=== PATIENT | female | born 1950 | race Caucasian/White ===

== ENCOUNTER → 2016-05-11 09:45 | Outpatient (CLI) | payer MEDICARE ==
[2015-09-27 12:31] VITALS: BMI 23.9
[~2016-05-11 09:45] MED LIST: AMPYRA10 MG PO; AUBAGIO14 MG PO; CALTRATE 600 M600 M1 PO; CIPRO250 MG PO; ESTRACE1 MG PO; KLONOPIN1 MG PO; OXYBUTYNIN CHLOR5 MG PO; RELPAX40 MG PO; SINEMET CR 50-1 EACH PO; TYLENOL PM1 TAB PO; XALATAN 0.0052.5 ML EACH EYE; [UNRECOGNIZED DRUG - OTHER] PO
== END | disposition home or self-care (01) ==
LOC: D.US 09:45
DX: R60.0 Localized edema (principal); M79.605 Pain in left leg

== ENCOUNTER → 2017-02-05 12:26 | Outpatient (CLI) | payer MEDICARE, BC ==
[2015-09-27 12:31] VITALS: BMI 23.9
== END | disposition home or self-care (01) ==
LOC: D.US 12:26
DX: R60.0 Localized edema (principal); M79.605 Pain in left leg

== ENCOUNTER → 2017-05-03 09:26 | Outpatient (CLI) | payer MEDICARE, BC ==
[2015-09-27 12:31] VITALS: BMI 23.9
== END | disposition home or self-care (01) ==
LOC: D.US 09:26
DX: I82.402 Acute embolism and thrombosis of unspecified deep veins of left lower extremity (principal)

== ENCOUNTER 2018-01-07 19:43 | Emergency (ER) | payer MEDICARE, BC ==
[~2018-01-07] VITALS: Ht 149.9 cm; Wt 57.2 kg
[2018-01-07 19:49] VITALS: BP 113/50; Ht 149.9 cm; Wt 57.2 kg
[2018-01-07] MEDS ORDERED: LYRICA75 MG PO (19:51)
[2018-01-07 20:06] LABS: BASOPHILS 0.3 % (0-2); EOSINOPHILS 1.6 % (0-7); HEMOGLOBIN 12.1 g/dL (12-16); LYMPHOCYTES 33.1 % (15-50); MCH 30.7 pg (26.0-34.0); MCHC 32.7 g/dL (31.0-37.0); MCV 93.9 fL (80.0-100.0); MEAN PLATELET VOLUME 9.3 fL (7.4-10.4); MONOCYTES 10.3 % (2-11); NEUTROPHILS 54.7 % (40-80); PLATELET COUNT 259 10x3/uL (130-400); RBC 3.94 10x6/uL (4.00-5.40); RDW 12.9 % (11.5-14.5); WBC 6.1 10x3/uL (4.8-10.8)
[2018-01-07 20:21] LABS: ALBUMIN 3.4 g/dL (3.4-5.0); ALKALINE PHOSPHATASE 107 U/L (46-116); ALT (SGPT) 10 U/L (10-68); BILIRUBIN - TOTAL 0.22 mg/dL (0.2-1.3); CALC OSMOLALITY 287 mosm/kg (275-300); CALCIUM 8.2 mg/dL (8.5-10.1); CARBON DIOXIDE 30.5 mmol/L (21.0-32.0); CHLORIDE - SERUM 105 mmol/L (98-107); CREATININE - SERUM 0.6 mg/dL (0.6-1.3); GLUCOSE 105 mg/dL (74-106); POTASSIUM - SERUM 3.7 mmol/L (3.5-5.1); PROTEIN - SERUM 6.7 g/dL (6.4-8.2); SODIUM 143 mmol/L (136-145); UREA NITROGEN 20 mg/dL (7-18); eGFR NON AFRICAN AMERICAN > 90 mL/min (90-120)
== END 2018-01-07 22:49 | disposition home or self-care (01) ==
LOC: D.ER 19:43
PROVIDERS: Family Medicine
DX: R22.42 Localized swelling, mass and lump, left lower limb (principal); M79.662 Pain in left lower leg

== ENCOUNTER 2018-06-23 12:33 | Inpatient (IN) | payer MEDICARE, BC ==
[~2018-06-23] VITALS: Ht 149.9 cm; Wt 61.0 kg
[~2018-06-23 12:33] MED LIST changes: +LYRICA75 MG PO
[2018-06-23 13:24] VITALS: BP 147/62
[2018-06-23 13:27] LABS: BASOPHILS 0.4 % (0-2); EOSINOPHILS 0.3 % (0-7); HEMATOCRIT 37.5 % (36.0-48.0); HEMOGLOBIN 12.2 g/dL (12-16); IMMATURE GRANULOCYTES 0.2 % (0-5); LYMPHOCYTES 11.5 % (15-50); MCH 30.3 pg (26.0-34.0); MCHC 32.5 g/dL (31.0-37.0); MCV 93.3 fL (80.0-100.0); MEAN PLATELET VOLUME 9.5 fL (7.4-10.4); MONOCYTES 9.4 % (2-11); NEUTROPHILS 78.2 % (40-80); RBC 4.02 10x6/uL (4.00-5.40); RDW 13.6 % (11.5-14.5); WBC 9.2 10x3/uL (4.8-10.8)
[2018-06-23 13:33] LABS: PLATELET COUNT 350 10x3/uL (130-400)
[2018-06-23 13:40] LABS: ALBUMIN 3.7 g/dL (3.4-5.0); ALKALINE PHOSPHATASE 143 U/L (46-116); ALT (SGPT) 36 U/L (10-68); CALC OSMOLALITY 280 mosm/kg (275-300); CALCIUM 8.6 mg/dL (8.5-10.1); CARBON DIOXIDE 27.9 mmol/L (21.0-32.0); CHLORIDE - SERUM 103 mmol/L (98-107); CREATININE - SERUM 0.6 mg/dL (0.6-1.3); GLUCOSE 76 mg/dL (74-106); POTASSIUM - SERUM 3.6 mmol/L (3.5-5.1); PROTEIN - SERUM 7.5 g/dL (6.4-8.2); SODIUM 141 mmol/L (136-145); UREA NITROGEN 15 mg/dL (7-18); eGFR NON AFRICAN AMERICAN > 90 mL/min (90-120)
--- NOTE | 2018-06-23 14:10 | NUR ---
PT PROVIDED SNACK AND DRINK. PT STABLE, CALLLIGHT WITHIN REACH, DEEP AT BEDSIDE, WILL CONTINUE TO MONITOR.
[2018-06-23 14:30] VITALS: BP 145/52
[2018-06-23 17:00] VITALS: BP 135/53
[2018-06-23 18:30] VITALS: BP 122/51
--- NOTE | 2018-06-23 18:52 | NUR ---
PT REPORT CALLED TO [facility]. PT STABLE, CALL LIGHT WITHIN REACH. REPORTED THAT PT TOOK SOME OF HOME MEDICATION DALFAMPRIDINE 10 MG, LYRICA 75 MG, OXYBUTIN 10 MG, AND TYLENOL PM.
--- NOTE | 2018-06-23 19:30 | NUR ---
PT ADMITTED TO ROOM 210 FROM ER. ALERT/ORIENTED. ACCOMPANIED BY FAMILY X 5. ADMISSION ASSESSMENT AND HISTORY COMPLETED. HOME MEDS REVIEWED.
[2018-06-23 20:19] LABS: APPEARANCE HAZY (CLEAR); COLOR YELLOW (YELLOW)
[2018-06-23 20:20] LABS: BILIRUBIN NEGATIVE (NEGATIVE); GLUCOSE NEGATIVE (NEGATIVE); KETONE MODERATE mg/dL (NEGATIVE); NITRITE POSITIVE (NEGATIVE); PROTEIN TRACE mg/dL (NEGATIVE); UROBILINOGEN NORMAL (NORMAL)
[2018-06-23 20:21] LABS: BACTERIA MANY /hpf (NONE SEEN); EPITHELIAL CELLS 0-5 /hpf (0-5); RED CELLS - URINE 0-5 /hpf (0-5); WHITE CELLS - URINE 25-50 /hpf (0-5)
--- NOTE | 2018-06-23 21:20 | NUR ---
DR ESCOBAR NOW ON UNIT SEEING PATIENT.
[2018-06-23 21:43] VITALS: BP 115/48
[2018-06-24 00:30] VITALS: BP 115/48; Ht 149.9 cm; Wt 61.0 kg
[2018-06-24 01:07] VITALS: BP 117/51
[2018-06-24 05:45] LABS: BASOPHILS 0.1 % (0-2); EOSINOPHILS 0.4 % (0-7); HEMATOCRIT 35.4 % (36.0-48.0); HEMOGLOBIN 11.4 g/dL (12-16); IMMATURE GRANULOCYTES 0.3 % (0-5); LYMPHOCYTES 5.1 % (15-50); MCHC 32.2 g/dL (31.0-37.0); MCV 93.2 fL (80.0-100.0); MEAN PLATELET VOLUME 9.4 fL (7.4-10.4); MONOCYTES 8.2 % (2-11); NEUTROPHILS 85.9 % (40-80); PLATELET COUNT 348 10x3/uL (130-400)
[2018-06-24 05:57] VITALS: BP 121/58
[2018-06-24 06:03] LABS: CALC OSMOLALITY 282 mosm/kg (275-300); CALCIUM 7.9 mg/dL (8.5-10.1); CARBON DIOXIDE 24.6 mmol/L (21.0-32.0); CHLORIDE - SERUM 105 mmol/L (98-107); CREATININE - SERUM 0.6 mg/dL (0.6-1.3); POTASSIUM - SERUM 3.7 mmol/L (3.5-5.1); SODIUM 141 mmol/L (136-145); UREA NITROGEN 15 mg/dL (7-18); eGFR NON AFRICAN AMERICAN > 90 mL/min (90-120)
[2018-06-24 06:05] LABS: GLUCOSE 119 mg/dL (74-106)
[2018-06-24 06:09] LABS: WBC 15.5 10x3/uL (4.8-10.8)
[2018-06-24 08:19] VITALS: BP 113/50
--- NOTE | 2018-06-24 08:47 | HP ---
PATIENT: ALEC DAVIS MEDICAL RECORD: [id number] ACCOUNT: [id number] LOCATION:[address] : [birth year] ADMISSION DATE: 06/23/18 PCP: No PCP HISTORY AND PHYSICAL EXAMINATION DATE OF ADMISSION: 06/23/2018 CHIEF COMPLAINT: Fall, weakness, urinary tract infection, and multiple sclerosis. HISTORY OF PRESENT ILLNESS: This is a 67-year-old female who has multiple sclerosis followed by Dr. Blackwood. She has had increased weakness, lately she is having more falls. Lately, she is using a rollator walker more. Her sister was at her house yesterday and the patient was very weak and could not walk, but just a few steps. Her sister cleaned up the kitchen little bit and left and came back this morning about 11:00 a.m. and her wooden door was open to the outside and the screen door was shut. The patient was found on the floor in the bathroom without any clothes on. The patient's sister thinks that she spent all night on the floor in the bathroom and could not get up because she was so weak. She was brought to the Emergency Department today. Her urinalysis looks infected. Other lab work looked okay. Left ankle x-ray shows an acute, mildly displaced horizontal fracture at the medial malleolus. She is not able to get up and walk. She is admitted for further care and evaluation. Also, the sister states that the patient was very confused when she got there this morning. She thought she was somewhere else and was disoriented. Sister states that she is a lot better now, but still says a few words that lead her to believe she is still confused. PAST MEDICAL AND SURGICAL HISTORY: Multiple sclerosis, history of gout, migraine headaches, and glaucoma. PAST SURGICAL HISTORY: Hysterectomy. ALLERGIES: SULFA. HOME MEDICATIONS: Latanoprost 0.005% drops 1 drop both eyes every day, oxybutynin 5 mg twice a day, Lyrica 75 mg twice a day, dalfampridine 10 mg sustained release twice a day, Aubagio 14 mg tablet once a day. She also takes Sinemet-CR 50/200 three times a day, amitriptyline 50 mg at bedtime, Estradiol 1 mg once a day, and clonazepam 1 mg at bedtime. SOCIAL HISTORY: , lives alone, retired. HABITS: Former smoker, no alcohol or drugs. FAMILY HISTORY: Noncontributory. REVIEW OF SYSTEMS: GENERAL: No major weight changes. HEENT: No particular sinus or allergy problems. RESPIRATORY: No history of emphysema or asthma. CARDIAC: No history of coronary artery disease. No chest pain or palpitations. GASTROINTESTINAL: No diarrhea, constipation, or reflux. GENITOURINARY: Occasional urinary tract infection. MUSCULOSKELETAL: Has multiple sclerosis and is suffering falls. HISTORY AND PHYSICAL [id number] ALEC DAVIS NEUROLOGICAL: Has multiple sclerosis and migraine headaches followed by Dr. Blackwood. PSYCHIATRIC: No depression or melancholia. PHYSICAL EXAMINATION: VITAL SIGNS: Today, temperature 97.3, pulse 88, respirations 15, blood pressure 134/63, O2 sat 97%. GENERAL: She does not appear to be in acute distress. She is awake and alert. SKIN: Warm and dry. HEENT: Grossly within normal limits. NECK: Supple. No JVD or bruit. HEART: Regular rate and rhythm without murmur. LUNGS: Clear. ABDOMEN: Soft, flat, nontender. EXTREMITIES: She has mild erythema on her lower extremities. No pitting edema. She has mild tenderness to palpation around the medial malleolus of the left ankle where the x-ray suggested an acute, mildly displaced horizontal fracture. NEUROLOGIC: She is not asked to get out of bed and walk or stand up at this time. LABORATORY DATA: Urinalysis 2+ leukocyte esterase, moderate ketones, positive nitrite, trace protein, 25-50 white blood cells, many bacteria. CBC with a white count 9200, hemoglobin 12.2, hematocrit 37.5. Basic metabolic panel: Sodium 141, potassium 3.6, chloride 103, CO2 27.9, BUN 15, creatinine 0.6, glucose 76, calcium 8.6. AST is elevated at 68, ALT 36. X-ray of the left knee shows no osseous abnormality. X-ray of the left ankle shows acute mildly displaced horizontal fracture of the medial malleolus. Chest x-ray, nothing acute. ASSESSMENT: 1. Unwitnessed fall, last night at home. 2. Urinary tract infection. 3. Multiple sclerosis. 4. Acute mildly displaced fracture of left medial malleolus. PLAN: We will start IV fluid, IV antibiotics. We will check a CT of the head due to her confusion this morning. We will also check a CT of the left ankle as she does not seem to be very painful to palpation there. We will check a D-dimer, follow up with results of that. Other tests or procedures as warranted. TRANSINT:[id number] Voice Confirmation ID: [id number] DOCUMENT ID: [id number] LEI ESCOBAR MD at 0847 CC: [id number] DICTATION DATE: 06/23/182128 COMPUTER NETWORK AND SYSTEMS ENGINEER: 06/23/18 2342 ADM IN [place] [id number] [place] [id number]
[2018-06-24 12:17] VITALS: BP 109/50
--- NOTE | 2018-06-24 13:32 | NUR ---
ALERT AND ORIENTED. SITTING UP IN BED. US TECH INITIATING DOPLER ORDERED. INITIATE NPO FOR CTA. DENIES ANY NEEDS. CONTINUE PLAN OF CARE AND SAFETY PRECAUTIONS.
--- NOTE | 2018-06-24 17:56 | NUR ---
ALERT AND ORIENTED X4. RESTING IN BED. LINENS SOILED. LINEN CHANGE INITIATED. EKG COMPLETE ON CHART. DENIES ANY OTHER NEEDS. CONTINUE PLAN OF CARE AND SAFETY PRECAUTIONS.
--- NOTE | 2018-06-24 19:20 | NUR ---
RESUMING CARE PT LAYING IN BED A&O X4, IN IN LFT WRIST RUNNING NS @50 , PT ON RA NO C/O OF PAIN OR DISTRESS AT THIS TIME FAMILY @BEDSIDE CL IN REACH WILL CONT TO MONITOR
[2018-06-25] VITALS: BP 118/56; BP 121/62
--- NOTE | 2018-06-25 02:38 | NUR ---
RESTING QUITELY IN BED EYES CLOSED RESP UNLABOARED NO APPARENT DISTRESS CALL LIGHT IN REACH
[2018-06-25 04:00] VITALS: BP 107/55
--- NOTE | 2018-06-25 07:33 | NUR ---
REPORT RECEIVED. WILL CONTINUE WITH POC. PT CURRENTLY LYING SEMI FOWLERS. CALL LIGHT W/I REACH. PT IS AAO AND UP AD TORRIE. RR EVEN AND UNLABORED ON RA. NS INFUSING @50ML/HR VIA L.WRIST PIV. PT DENIES ANY NEEDS AT THIS TIME. FALL PRECAUTIONS IN PLACE. NO S/S OF DISTRESS NOTED. WILL CTM.
[2018-06-25 07:59] VITALS: BP 119/49
[2018-06-25 11:25] VITALS: BP 117/61
--- NOTE | 2018-06-25 14:30 | NUR ---
I have reviewed this patient and I concur with the Shift Assessment completed by the Licensed Practical Nurse today this shift.
[2018-06-25 15:16] VITALS: BP 131/61
--- NOTE | 2018-06-25 16:02 | NUR ---
I have reviewed this patient and I concur with the Shift Assessment completed by the Licensed Practical Nurse today this shift.
--- NOTE | 2018-06-25 17:18 | NUR ---
PT CURRENTLY LYING SEMI FOWLERS. CALL LIGHT W/I REACH. PT IS AAO AND UP WITH PT ONLY. FAMILY AT BEDSIDE. RR EVEN AND UNLABORED ON RA. NS INFUSING @50ML/HR VIA L.WRIST PIV. PIV DRESSING CHANGE AND IS C/D/I. PT DENIES ANY NEEDS AT THIS TIME. WILL CTM.
--- NOTE | 2018-06-25 20:29 | NUR ---
PT INCONT A LARGE AMOUNT, CLEANED PT AND REPOSITIONED. LEFT LEG STIFF AND BOTH LEGS WEAK. PT IS AAO, PT NOW CLEAN AND DRY. WILL CALL FOR ASSIST WHEN NEEDED. PT BEDLOW AND CALL LIGHT IN REACH. NAME AND DATE PLACED ON BOARD. WILL CPOC
[2018-06-25 20:30] VITALS: BP 129/41
--- NOTE | 2018-06-25 21:29 | NUR ---
PT INCONT A LARGE AMOUNT. COMPLETE BEDCHANGE. GAVE PT NIGHT MEDS. PT VERBALIZED UNDERSTANDING OF ALL MEDICATIONS AND EDUCATION GIVEN ON MEDICATIONS. ROCEPHIN GIVEN THROUGH LEFT WRIST IV. PT WILL CALL FOR ASSIST WHEN NEEDED WILL CPOC
[2018-06-26 00:30] VITALS: BP 112/63
--- NOTE | 2018-06-26 02:00 | NUR ---
PT INCONT A LARGE AMOUNT. CLEANED PT AND REPOSTIONED. PT BEDLOW AND CALL LIGHT INREACH. PT VERBALIZED UNDERSTANDING OF EDUCATION REGARDING SKIN INTEGRITY. PT STATES SHE WILL REPOSTION BUTTOCK TO PREVENT BREAKDOWN. PT HAS NO S/S OF DISTRESS. WILL CPOC
--- NOTE | 2018-06-26 04:00 | NUR ---
PT INCONT A LARGE AMOUNT, LEFT WRIST IV IS RED AND IS LEAKING. REMOVED IV WITH CATH INTACT. APPLIED BANDAID. PT ASKED TO GET ON BED PARRA AFTER BEING CHANGED FROM AN INCONT VOID. PLACED PT ON BEDPAN. PT URINATED. TOOK OFF OF BEDPAN. CLEANED AND REPOSTIONED. PT HAS CALL LIGHT IN REACH. NO S/S OF DISTRESS. PT WILL CALL FOR ASSIST WHEN NEEDED.WILL CPOC
--- NOTE | 2018-06-26 04:29 | NUR ---
PT CALLED TO BE PLACED ON BED PARRA. PLACED BEDPAN PT HAS CALL LIGHT INREACH. WILL CALL FOR ASSIST WHEN COMPLETE. NO S/S OF DISTRESS. NO OTHER NEEDS. ANKIT KWANOC
--- NOTE | 2018-06-26 04:59 | NUR ---
PT OFF OF BED PARRA. VOIDED 120ML 2 SMALL PIECES OF STOOL HARD LESS THAN 80ML IN TOTAL. PT CLEANED AND REPOSTIONED. DENIES ANY NEEDS. WILL CPOC
[2018-06-26 05:29] VITALS: BP 134/63
--- NOTE | 2018-06-26 06:20 | NUR ---
PT INCONT A SMALL AMOUNT THAN USED BEDPAN AND URINATED 150 PT CLEANED AND REPOSTIONED. PT HAS CALL LIGHT IN REACH. WILL CPOC
[2018-06-26 07:53] VITALS: BP 125/56
--- NOTE | 2018-06-26 10:41 | NUR ---
REHAB PRESCREENING Rehab referral received and chart reviewed. Ms. Batista appears to be a good candidate for acute inpatient rehab. Dr. Burton has ordered a CTA of her neck today. Rehab will interview with patient to determine willingness to come and participate in the required 3 hours of therapy. CTA will need to be completed and determination of further treatment will need to be assessed prior to admission to rehab. Rehab will continue to follow. Thank you for this referral! Keleln Gil, STEWARD/STEWARDESS DECK Rehab PD
[2018-06-26 12:23] VITALS: BP 107/53
--- NOTE | 2018-06-26 13:58 | NUR ---
PT CHANGED. DENIES ANY NEEDS. CALL LIGHT IN REACH. WILL MONITOR
--- NOTE | 2018-06-26 14:09 | NUR ---
I DISAGREE WITH ASSESSMENT OF MORTUARY BEAUTICIAN. PATIENT IS INCONT. OF URINE. SHE ALSO HAS A RIGHT FA PIV OF NS INFUSING AT 50 CC/HR.
[2018-06-26 14:47] VITALS: BP 142/64
--- NOTE | 2018-06-26 16:16 | MORECARE ---
CASE MANAGEMENT DISCHARGE SUMMARY PATIENT: ALEC DAVIS ARYA UNIT: [id number] ADM DATE: 06/23/18 AGE: 67 : 51 SEX: F ROOM/BED: D.2104 AUTHOR: MARY CHRISTENSEN PHYSICIAN: REFERRING PHYSICIAN: ELI ESCOBAR MD DATE OF SERVICE: 06/26/18 Discharge Plan Patient Name: ALEC DAVIS Facility: [facility]:[place] : 1950 Planned Disposition: Inpatient Rehab Anticipated Discharge Date: 06/26/18 Discharge Date: Expected LOS: 3 Initial Reviewer: [email or web address] Initial Review Date: 06/26/2018 Generated: 06/26/18 5:16 pm DCPIA - Discharge Planning Initial Assessment Updated by [id number]: Joseph Armendariz on 06/26/18 4:15 pm * Is the patient Alert and Oriented? Yes * How many steps to enter\exit or inside your home? 4-O / 2-I * PCP DR. ESCOBAR * [facility] * Preadmission Environment Home Alone * ADLs Independent * Equipment Cane Other Wheelchair * Other Equipment ROLLATOR WALKER [employer] - MEDICAL EQUIPMENT PROVIDER * List name and contact numbers for known caregivers / representatives who currently or will assist patient after discharge: SAM OKEEFE, SISTER, * Verbal permission to speak to the caregivers and representatives has been obtained from the patient. Yes * Community resources currently utilized None * Please name any agencies selected above. NONE * Additional services required to return to the preadmission environment? Yes * Can the patient safely return to the preadmission environment? Yes * Has this patient been hospitalized within the prior 30 days at any hospital? No Coverage Notice Reviewer: [id number] - Joseph Armendariz Notice Issued Date-Time: 06/26/2018 11:10 Notice Type: IM Discharge Notice Notice Delivered To: Patient Relationship to Patient: Continuum Of Care Manager Name: Delivery Method: HAND - Hand Delivered Maia Days: Prior Verbal Notification: Recipient Understood Notice: Yes Recipient Signature: Yes Med Rec Note Co-signed by Attending: Coverage Notice Comment: Patient Name: ALEC DAVIS Page 58510 at 1616 All edits/amendments must be made on the electronic document DICTATION DATE: 06/26/181615 SCIENTIFIC SYSTEMS ANALYST: PATSY 06/26/181615 RPT#: [id number] DC DATE: STATUS: ADM IN [facility] [address] [place] [address] END OF REPORT
--- NOTE | 2018-06-26 16:26 | MORECARE ---
CASE MANAGEMENT DISCHARGE SUMMARY PATIENT: ALEC DAVIS UNIT: [id number] ADM DATE: 06/23/18 AGE: 67 : 51 SEX: F ROOM/BED: D.7824 AUTHOR: FERMIN,DOC PHYSICIAN: REFERRING PHYSICIAN: ELI ESCOBAR MD DATE OF SERVICE: 06/26/18 Discharge Plan Patient Name: ALEC DAVIS [facility] [facility] 1950 Planned Disposition: Inpatient Rehab Anticipated Discharge Date: 06/26/18 Discharge Date: Expected LOS: 3 Initial Reviewer: [email or web address] Initial Review Date: 06/26/2018 Generated: 06/26/18 5:26 pm Comments DCP- Discharge Planning Updated by [email or web address]: Joseph Armendariz on 06/26/18 3:[address] Patient Name: ALEC DAVIS Admission Status: ER Accout number: [id number] Admission Date: 06-23-2018 : 1950 Admission Diagnosis:URINARY TRACT INFECTION, SITE NOT SPECIFIED Attending: ELI ESCOBAR Current LOS: 3 Anticipated DC Date: 06-26-2018 Planned Disposition: Inpatient Rehab Primary Insurance: MEDICARE A & B PLANNED EXTERNAL PROVIDER: [facility] INPATIENT REHAB Discharge Planning Comments: CM RECEIVED ORDER FOR INPATIENT REHAB PRESCREENING, MET WITH PT AND SISTER IN ROOM TO DISCUSS DISCHARGE PLANNING AND NEEDS. ALEC DAVIS provided verbal consent to discuss current and ongoing needs with/in the presence of: SISTER, SAM OKEEFE. PT REPORTS LIVING AT HOME INDEPENDENTLY AND ALONE. PT HAS CANE, ROLLATOR WALKER AND WHEELCHAIR (NOT USING CURRENTLY) FROM [employer]. PT NO OUTSIDE SERVICES ASSISTING IN THE HOME. CM DISCUSSED AVAILABILITY OF HOME HEALTH, REHAB SERVICES AND MEDICAL EQUIPMENT. PT WOULD LIKE REHAB AT [facility]. PT REPORTS HER SISTER WILL PICK HER UP FOR DISCHARGE HOME. IMPORTANT MESSAGE FROM MEDICARE PROVIDED AND EXPLAINED. CM SPOKE TO [facility] AT [place], PT IS GOOD CANDIDATE FOR REHAB. THEY PLAN TO ACCEPT PT AT DISCHARGE LONG ALL TESTING AND PROCEDURES ARE COMPLETED AND PT IS MEDICALLY STABLE FOR REHAB. THERE IS A PHYSICIAN CONSULTATION THAT HAS NOT YET BEEN COMPLETED AND DOCUMENTED. FOR DISCHARGE, NOTIFY [facility] INPATIENT REHAB SO THAT SCREENING CAN BE COMPLETED. Hair Sample Matcher: Joseph Armendariz DCPIA - Discharge Planning Initial Assessment Updated by [id number]: Joseph Armendariz on 06/26/18 4:15 pm * Is the patient Alert and Oriented? Yes * How many steps to enter\exit or inside your home? 4-O / 2-I * PCP DR. ESCOBRA * Pharmacy [facility] [address] * Preadmission Environment Home Alone * ADLs Independent * Equipment Cane Other Wheelchair * Other Equipment ROLLATOR WALKER [employer] - MEDICAL EQUIPMENT PROVIDER * List name and contact numbers for known caregivers / representatives who currently or will assist patient after discharge: SAM OKEEFE, SISTER, * Verbal permission to speak to the caregivers and representatives has been obtained from the patient. Yes * Community resources currently utilized None * Please name any agencies selected above. NONE * Additional services required to return to the preadmission environment? Yes * Can the patient safely return to the preadmission environment? Yes * Has this patient been hospitalized within the prior 30 days at any hospital? No Coverage Notice Reviewer: [id number] - Joseph Armendariz Notice Issued Date-Time: 06/26/2018 11:10 Notice Type: IM Discharge Notice Notice Delivered To: Patient Relationship to Patient: Barrel Rifler Operator Name: Delivery Method: HAND - Hand Delivered Maia Days: Prior Verbal Notification: Recipient Understood Notice: Yes Recipient Signature: Yes Med Rec Note Co-signed by Attending: Coverage Notice Comment: Last DP export: 06/26/18 3:16 p Patient Name: ALEC DAVIS Page [phone] at 1626 All edits/amendments must be made on the electronic document DICTATION DATE: 06/26/181625 COMMUNITY SERVICE SPECIALIST: PATSY 06/26/18 1626 RPT#: [id number] DC DATE: STATUS: ADM IN [facility] [address] [place] [address] END OF REPORT
--- NOTE | 2018-06-26 19:30 | NUR ---
RESUMING PT CARE. PT IS ALERT LAYING IN BED. FAMILY AT BEDSIDE. NO C/O VOICED AT THIS TIME. PT HAS A IV IN THE RIGHT FOREARM WITH NORMAL SALINE RUNNING AT 50 ML/HR. BED IN LOW POSITION WITH CALL LIGHT IN REACH. WILL CONTINUE TO MONITOR PT AND FOLLOW PLAN OF CARE.
[2018-06-26 20:00] VITALS: BP 135/61
[2018-06-27] VITALS: BP 144/59
--- NOTE | 2018-06-27 03:19 | NUR ---
PT LAYING IN BED WITH EYES CLOSED RESTING COMFORTABLY. RESPIRATIONS EVEN AND UNLABORED. PT HAS A IV IN THE RIGHT FOREARM PIV WITH NORMAL SALINE INFUSING AT 50 CC/HR. BED IN LOW POSITION WITH CALL LIGHTIN REACH. WILL CONTINUE TO MONITOR PT AND FOLLOW PLAN OF CARE.
[2018-06-27 04:50] VITALS: BP 120/59
--- NOTE | 2018-06-27 07:54 | NUR ---
PT AWAKE AND ORIENTED. LYING IN BED. NO CONCERNS/COMPLAINTS VOICED AT THIS TIME. VERY PLESANT. CL IN REACH. SRX2.
[2018-06-27 08:14] VITALS: BP 128/66
--- NOTE | 2018-06-27 12:24 | MORECARE ---
CASE MANAGEMENT DISCHARGE SUMMARY PATIENT: ALEC DAVIS UNIT: [id number] ADM DATE: 06/23/18 AGE: 67 : 51 SEX: F ROOM/BED: D.2104 AUTHOR: MARY CHRISTENSEN PHYSICIAN: REFERRING PHYSICIAN: ELI ESCOBAR MD DATE OF SERVICE: 06/27/18 Discharge Plan Patient Name: ALEC DAVIS Facility: [facility]:[place] : 1950 Planned Disposition: Inpatient Rehab Anticipated Discharge Date: 06/27/18 Discharge Date: Expected LOS: 4 Initial Reviewer: [email or web address] Initial Review Date: 06/26/2018 Generated: 06/27/18 1:24 pm Comments DCP- Discharge Planning Updated by [id number]: Joseph Armendariz on 06/27/18 11:[address] Patient Name: ALEC DAVIS Encounter No: [id number] : 1950 Primary Insurance: MEDICARE A & B Anticipated DC Date: 06-26-2018 Planned Disposition: Inpatient Rehab External Planned Provider: [facility] INPATIENT REH[facility] DCP follow-up note: CM SPOKE TO [facility] OF INPATIENT REHAB, THEY PLAN TO ACCEPT PT TODAY IF PRIMARY CARE IS READY TO DISCHARGE DR. RUSSO INDICATES HE IS. PT NOTIFIED, IN AGREEMENT WITH DISCHARGE TO INPATIENT REHAB. CM CALLED FOR DR ESCOBAR, DR. PADILLA COVERING, SPOKE TO NURSE DARWIN WHO WILL NOTIFY DR. PADILLA FOR DISCHARGE TODAY. CM NOTIFIED [facility] OF INPATIENT REHAB. [facility] INPATIENT REHAB TO CONTACT MED 2 NURSE WITH ROOM NUMBER WHEN READY TO ACCEPT PT AND NURSE REPORT. Joseph Armendariz, CASE MANAGEMENT DCP- Discharge Planning Updated by [id number]: Joseph Armendariz on 06/26/18 3:[address] Patient Name: ALEC DAVIS Admission Status: ER Accout number: [id number] Admission Date: 06-23-2018 : 1950 Admission Diagnosis:URINARY TRACT INFECTION, SITE NOT SPECIFIED Attending: ELI ESCOBAR Current LOS: 3 Anticipated DC Date: 06-26-2018 Planned Disposition: Inpatient Rehab Primary Insurance: MEDICARE A & B PLANNED EXTERNAL PROVIDER: [facility] INPATIENT REHAB Discharge Planning Comments: CM RECEIVED ORDER FOR INPATIENT REHAB PRESCREENING, MET WITH PT AND SISTER IN ROOM TO DISCUSS DISCHARGE PLANNING AND NEEDS. ALEC DAVIS provided verbal consent to discuss current and ongoing needs with/in the presence of: SISTER, SAM OKEEFE. PT REPORTS LIVING AT HOME INDEPENDENTLY AND ALONE. PT HAS CANE, ROLLATOR WALKER AND WHEELCHAIR (NOT USING CURRENTLY) FROM [employer]. PT NO OUTSIDE SERVICES ASSISTING IN THE HOME. CM DISCUSSED AVAILABILITY OF HOME HEALTH, REHAB SERVICES AND MEDICAL EQUIPMENT. PT WOULD LIKE REHAB AT [facility]. PT REPORTS HER SISTER WILL PICK HER UP FOR DISCHARGE HOME. IMPORTANT MESSAGE FROM MEDICARE PROVIDED AND EXPLAINED. CM SPOKE TO [facility] AT [place], PT IS GOOD CANDIDATE FOR REHAB. THEY PLAN TO ACCEPT PT AT DISCHARGE LONG ALL TESTING AND PROCEDURES ARE COMPLETED AND PT IS MEDICALLY STABLE FOR REHAB. THERE IS A PHYSICIAN CONSULTATION THAT HAS NOT YET BEEN COMPLETED AND DOCUMENTED. FOR DISCHARGE, NOTIFY [facility] INPATIENT REHAB SO THAT SCREENING CAN BE COMPLETED. Laboratory Coordinator: Joseph Armendariz DCPIA - Discharge Planning Initial Assessment Updated by [id number]: Joseph Armendariz on 06/26/18 4:15 pm * Is the patient Alert and Oriented? Yes * How many steps to enter\exit or inside your home? 4-O / 2-I * PCP DR. ESCOBAR * [facility] [place] [place] [address] * Preadmission Environment Home Alone * ADLs Independent * Equipment Cane Other Wheelchair * Other Equipment ROLLATOR WALKER [employer] - MEDICAL EQUIPMENT PROVIDER * List name and contact numbers for known caregivers / representatives who currently or will assist patient after discharge: SAM OKEEFE, SISTER, * Verbal permission to speak to the caregivers and representatives has been obtained from the patient. Yes * Community resources currently utilized None * Please name any agencies selected above. NONE * Additional services required to return to the preadmission environment? Yes * Can the patient safely return to the preadmission environment? Yes * Has this patient been hospitalized within the prior 30 days at any hospital? No Coverage Notice Reviewer: [id number] - Joseph Armendariz Notice Issued Date-Time: 06/26/2018 11:10 Notice Type: IM Discharge Notice Notice Delivered To: Patient Relationship to Patient: Company Doctor Name: Delivery Method: HAND - Hand Delivered Maia Days: Prior Verbal Notification: Recipient Understood Notice: Yes Recipient Signature: Yes Med Rec Note Co-signed by Attending: Coverage Notice Comment: Last DP export: 06/26/18 3:26 p Patient Name: ALEC DAVIS Page [phone] at 1224 All edits/amendments must be made on the electronic document DICTATION DATE: 06/27/18 1224 ACCOUNT PROCESSOR: PATSY 06/27/18 1224 RPT#: [id number] DC DATE: STATUS: ADM IN [facility] [address] [place] [address] END OF REPORT
--- NOTE | 2018-06-27 13:20 | NUR ---
I have reviewed this patient and I concur with the Shift Assessment completed by the Licensed Practical Nurse today this shift.
--- NOTE | 2018-06-27 13:29 | NUR ---
I have reviewed this patient and I concur with the Shift Assessment completed by the Licensed Practical Nurse today this shift. Patient is sitting in chair at this time awaiting therapy to place her back in bed.
[2018-06-27 15:02] VITALS: BP 119/71
--- NOTE | 2018-06-27 15:55 | NUR ---
PT WILL BE GOING TO ROOM 1113.
--- NOTE | 2018-06-27 16:02 | NUR ---
PT ESCORTED OUT VIA WHEELCHAIR TO REHAB. BROTHER IN LAW WITH HER.
== END 2018-06-27 16:07 | DRG 65 ==
LOC: D.ER 12:33 → D.EDHOLD 16:33 → D.M2 16:33
PROVIDERS: Emergency Medicine; ADMIT Family Medicine; ATTEND Family Medicine
DX: I63.81 Other cerebral infarction due to occlusion or stenosis of small artery (principal); N39.0 Urinary tract infection, site not specified; I69.851 Hemiplegia and hemiparesis following other cerebrovascular disease affecting right dominant side; G35 Multiple sclerosis; W19.XXXA Unspecified fall, initial encounter; S82.52XA Displaced fracture of medial malleolus of left tibia, initial encounter for closed fracture; I69.920 Aphasia following unspecified cerebrovascular disease; M50.223 Other cervical disc displacement at C6-C7 level; R41.0 Disorientation, unspecified; R53.81 Other malaise

== ENCOUNTER 2018-06-27 16:22 | Inpatient (IN) | payer MEDICARE, BC ==
[~2018-06-27] VITALS: Ht 149.9 cm; Wt 56.7 kg
[2018-06-27 16:45] VITALS: BMI 25.3
--- NOTE | 2018-06-27 20:00 | NUR ---
PT IS RESTING IN BED WITH EYES OPEN. ALERT AND ORIENTED X 3. DENIES ACUTE PAIN OR DISCOMFORT AT THIS TIME. REHAB ADMISSION PAPERS SIGNED AT THIS TIME. PT ACKNOWLEDGES UNDERSTANDING OF ALL RULES. PT ASSISTED TO THE BATHROOM WITH MIN ASSIST FOR TRANSFERS. CGA WITH AMBULATION USING A RW, AND SBA FOR TOILETING. SR'S ARE UP X 2 IN BED. CALL LIGHT AND BEDSIDE TABLE ARE WTIHIN EASY REACH.
[2018-06-27 21:21] VITALS: BP 150/67
--- NOTE | 2018-06-27 22:03 | NUR ---
PT ASSISTED TO THE BATHROOM WITH MIN ASSIST. INC. CARE GIVEN, AND BRIED CHANGED.
--- NOTE | 2018-06-28 00:55 | NUR ---
RESTING IN BED WITH EYES CLOSED.
--- NOTE | 2018-06-28 02:43 | NUR ---
THE PATIENT IS AWAKE AND TALKING TO STAFF. HE APPEARS COMFORTABLE AND HAS NO QUESTIONS OR CONCERNS AT THIS TIME.
--- NOTE | 2018-06-28 02:46 | NUR ---
THE PATIENT APPEARS TO BE SLEEPING. BED IN THE LOW POSITION WITH SIDERAILS X2 AND CALL LIGHT WITHIN REACH.
--- NOTE | 2018-06-28 04:13 | NUR ---
PT IS RESTING QUIETLY IN BED WITH EYES CLOSED.
[2018-06-28 06:42] LABS: BASOPHILS 0.6 % (0-2); EOSINOPHILS 4.3 % (0-7); HEMOGLOBIN 12.8 g/dL (12-16); IMMATURE GRANULOCYTES 0.4 % (0-5); LYMPHOCYTES 33.1 % (15-50); MCH 30.3 pg (26.0-34.0); MCV 94.8 fL (80.0-100.0); MEAN PLATELET VOLUME 9.4 fL (7.4-10.4); MONOCYTES 14.1 % (2-11); NEUTROPHILS 47.5 % (40-80); PLATELET COUNT 417 10x3/uL (130-400); RBC 4.22 10x6/uL (4.00-5.40); WBC 7.2 10x3/uL (4.8-10.8)
[2018-06-28 06:52] LABS: CALC OSMOLALITY 280 mosm/kg (275-300); CALCIUM 8.5 mg/dL (8.5-10.1); CHLORIDE - SERUM 104 mmol/L (98-107); CREATININE - SERUM 0.7 mg/dL (0.6-1.3); GLUCOSE 97 mg/dL (74-106); POTASSIUM - SERUM 4.6 mmol/L (3.5-5.1); SODIUM 139 mmol/L (136-145); UREA NITROGEN 21 mg/dL (7-18); eGFR NON AFRICAN AMERICAN 89 mL/min (90-120)
--- NOTE | 2018-06-28 07:56 | NUR ---
RESTING WO DISTRESS. RESP EVEN ADN UNLABORED. CL IN REACH.
[2018-06-28 08:54] VITALS: BP 126/56
--- NOTE | 2018-06-28 13:25 | NUR ---
VERIFIED MEDICATION LIST WITH DR SOLIZ.
[2018-06-28 13:48] VITALS: Ht 149.9 cm; Wt 56.7 kg
--- NOTE | 2018-06-28 14:16 | NUR ---
SHOWER TODAY WITH THERAPY. WITTING IN WC AT THIS TIME. NO DISTRESS.
--- NOTE | 2018-06-28 17:59 | NUR ---
NO CHANGE IN ASSESSMENT. NO C/O PAIN. CL IN REACH. RESP EVEN AND UNLABORED.
[2018-06-28 18:29] VITALS: BP 140/60
[2018-06-28 19:30] VITALS: BP 131/71
--- NOTE | 2018-06-28 19:35 | NUR ---
PT ASSISTED TO THE BATHROOM WITH MIN ASSIST USING A RW. VOIDED WTIHOUT DIFFICULTY, THEN BACK TO BED. NO NEEDS VOICED. SR'S ARE UP X 2 IN BED. CALL LIGHT AND BEDSIDE TABLE ARE WITHIN EASY REACH.
--- NOTE | 2018-06-28 22:38 | NUR ---
PT IS RESTING QUIETLY IN BED WITH EYES CLOSED. NO ACUTE DISTRESS NOTED.
--- NOTE | 2018-06-29 00:49 | NUR ---
THE PATIENT APPEARS TO BE SLEEPING. BED IS IN TH ELOW POSITION WITH SIDERAILS X2 AND CALL LIGHT WITHIN REACH.
--- NOTE | 2018-06-29 05:18 | NUR ---
PT ASSISTED TO THE BATHROOM WITH SBA. NO FURTHER NEEDS VOICED.
--- NOTE | 2018-06-29 07:39 | NUR ---
ALERT AND ORIENTED. NO C/O PAIN. RESP EVEN AND UNLABORED. CL IN REACH.
[2018-06-29 08:14] VITALS: BP 110/65
--- NOTE | 2018-06-29 13:17 | NUR ---
RESP EVEN AND UNLABORED. NO C/O PAIN.
--- NOTE | 2018-06-29 16:36 | NUR ---
NO CHANGE IN ASSESSMENT. RESP EVEN AND UNLABORED. CL IN REACH.
--- NOTE | 2018-06-29 19:16 | NUR ---
PT IS RESTING IN BED TALKING ON HER CELL PHONE. ALERT AND ORIENTED X 3. DENIES ANY PAIN OR DISCOMFORT AT THIS TIME. NO NEEDS VOICED. SR'S ARE UP X 2 IN BED. CALL LIGHT AND BEDSIDE TABLE ARE WITHIN EASY REACH.
[2018-06-29 21:27] VITALS: BP 112/66
--- NOTE | 2018-06-29 22:00 | NUR ---
PT ASSSITED TO THE BATHROOM WITH SBA USING RW. VOIDED WITHOUT DIFFICULTY. NO FURTHER NEEDS VOICED.
--- NOTE | 2018-06-30 01:32 | NUR ---
RESTING QUIETLY IN BED WITH EYES CLOSED. NO ACUTE DISTRESS NOTED.
--- NOTE | 2018-06-30 03:49 | NUR ---
RESTING IN BED WITH EYES CLOSED AND RESPIRATIONS UNLABORED. NO DISTRESS NOTED.
--- NOTE | 2018-06-30 06:04 | NUR ---
PT ASSISTED TO THE BATHROOM WITH SBA. DRESSED WITH SBA. MOD ASSIST FOR LOWER EXT.
[2018-06-30 08:00] LABS: BASOPHILS 0.5 % (0-2); EOSINOPHILS 1.8 % (0-7); HEMOGLOBIN 12.4 g/dL (12-16); IMMATURE GRANULOCYTES 0.2 % (0-5); LYMPHOCYTES 21.9 % (15-50); MCH 30.2 pg (26.0-34.0); MCHC 31.8 g/dL (31.0-37.0); MCV 94.9 fL (80.0-100.0); NEUTROPHILS 62.6 % (40-80); PLATELET COUNT 362 10x3/uL (130-400); RBC 4.11 10x6/uL (4.00-5.40); WBC 6.2 10x3/uL (4.8-10.8)
[2018-06-30 08:20] LABS: CALC OSMOLALITY 285 mosm/kg (275-300); CALCIUM 8.6 mg/dL (8.5-10.1); CHLORIDE - SERUM 104 mmol/L (98-107); CREATININE - SERUM 0.6 mg/dL (0.6-1.3); GLUCOSE 91 mg/dL (74-106); POTASSIUM - SERUM 4.1 mmol/L (3.5-5.1); SODIUM 142 mmol/L (136-145); UREA NITROGEN 21 mg/dL (7-18); eGFR NON AFRICAN AMERICAN > 90 mL/min (90-120)
[2018-06-30 08:31] VITALS: BP 125/56
--- NOTE | 2018-06-30 10:53 | NUR ---
PATIENT ALERT AND ORIENTED THIS MORNING. NO COMPLAINTS OF PAIN OR DISCOMFORT. ATE 10% OF BREAKFAST. UP FOR THERAPY AT THIS TIME. WILL CONTINUE TO MONITOR.
--- NOTE | 2018-06-30 19:42 | NUR ---
PT IS SITTING ON THE SIDE OF HER BED. ALERT AND ORIENTED X 3. SHE DENIES ACUTE PAIN OR DISCOMFORT AT THIS TIME. NO NEEDS VOICED. SR'S ARE UP X 2 IN BED. CALL LIGHT AND BEDSIDE TABLE ARE WITHIN EASY REACH.
[2018-06-30 20:00] VITALS: BP 117/47
--- NOTE | 2018-06-30 21:51 | NUR ---
TV ON, PLAYING A GAME ON PHONE, PLEASANT, NO NEEDS NOTED FLUIDS AND CALL LIGHT WITHIN REACH
--- NOTE | 2018-07-01 01:00 | NUR ---
PT RESTING IN BED WITH EYES CLOSED. NO DISTRESS NOTED.
--- NOTE | 2018-07-01 04:58 | NUR ---
PT IS RESTING QUIETLY IN BED WITH EYES CLOSED. NO ACUTE DISTRESS NOTED.
--- NOTE | 2018-07-01 07:36 | NUR ---
EYES CLOSED, RESP EVEN AND UNLABORED. NO DISTRESS NOTED.
[2018-07-01 08:20] VITALS: BP 108/54
--- NOTE | 2018-07-01 12:34 | NUR ---
SITTING IN CHAIR WITH CROSS WORD PUZZLE. NO C/O PAIN.
--- NOTE | 2018-07-01 18:39 | NUR ---
NO CHANGE IN ASSESSMENT. CL IN REACH. NO C/O PAIN.
--- NOTE | 2018-07-01 19:51 | NUR ---
PATIENT RECEIVED SITTING UP IN BED. PATIENT VITAL SIGNS & ASSESSMENT DONE. PATIENT HAD NO C/O PAIN OR DISTRESS. PATIENT BED LOW. ALARM ON. CALL LIGHT WITHIN REACH. WILL CONTINUE TO MONITOR.
[2018-07-01 20:00] VITALS: BP 122/52
--- NOTE | 2018-07-02 03:08 | NUR ---
PT ASLEEP NO NEEDS NOTED FLUIDS AND CALL LIGHT WITHIN REACH
--- NOTE | 2018-07-02 04:14 | NUR ---
PATIENT EYES CLOSED. RESPIRATIONS 18 & EVEN. PATIENT BED LOW. CALL LIGHT WITHIN REACH. WILL CONTINUE TO MONITOR.
--- NOTE | 2018-07-02 07:27 | NUR ---
RESTING QUIETLY WO C/O PAIN. RESP EVEN AND UNLABORED. CL IN REACH.
[2018-07-02 07:51] LABS: BASOPHILS 0.4 % (0-2); EOSINOPHILS 3.2 % (0-7); HEMATOCRIT 36.1 % (36.0-48.0); HEMOGLOBIN 11.2 g/dL (12-16); IMMATURE GRANULOCYTES 0.4 % (0-5); LYMPHOCYTES 31.3 % (15-50); MCH 29.6 pg (26.0-34.0); MCV 95.3 fL (80.0-100.0); MEAN PLATELET VOLUME 9.4 fL (7.4-10.4); MONOCYTES 15.5 % (2-11); NEUTROPHILS 49.2 % (40-80); PLATELET COUNT 360 10x3/uL (130-400); RBC 3.79 10x6/uL (4.00-5.40); RDW 13.8 % (11.5-14.5)
[2018-07-02 07:55] LABS: CALC OSMOLALITY 285 mosm/kg (275-300); CALCIUM 8.2 mg/dL (8.5-10.1); CARBON DIOXIDE 27.2 mmol/L (21.0-32.0); CHLORIDE - SERUM 107 mmol/L (98-107); CREATININE - SERUM 0.5 mg/dL (0.6-1.3); GLUCOSE 86 mg/dL (74-106); POTASSIUM - SERUM 3.9 mmol/L (3.5-5.1); SODIUM 143 mmol/L (136-145); UREA NITROGEN 17 mg/dL (7-18); eGFR NON AFRICAN AMERICAN > 90 mL/min (90-120)
[2018-07-02 08:00] VITALS: BP 128/40
--- NOTE | 2018-07-02 11:56 | NUR ---
PARTICIPATED IN THERAPY. NO C/O PAIN. FAMILY IN ROOM.
--- NOTE | 2018-07-02 16:51 | NUR ---
CARE TEAM MEETING: PATIENT DOING WELL IN THERAPY. PATIENT FAMILY ATTENDED MEETING. TENTIVE DISCHARGE IS 07/10/18 . WILL CONTINUE TO FOLLOW WITH PATIENT.
--- NOTE | 2018-07-02 16:56 | NUR ---
UP IN WC. NO C/O PAIN. RESP EVEN AND UNLABORED.
--- NOTE | 2018-07-02 20:08 | NUR ---
THE PATIENT WAS WATCHING TELEVISION WHEN STAFF ENTERED HER AREA. BED IS IN THE LOW POSITION WITH SIDERAILS X2 AND CALL LIGHT WITHIN REACH. PATIENT DEMOSNTRATES APPROPRIATE USE OF A CALL LIGHT. THE PATIENT APPEARS COMFORTABLE WITH NO QUESTIONS OR CONCERNS AT THIS TIME.
[2018-07-02 21:53] VITALS: BP 136/65
--- NOTE | 2018-07-03 02:15 | NUR ---
THE PATIENT APPEARS TO BE SLEEPING. BED IS IN THE LOW POSITION WITH SIDERAILS X2 AND CALL LIGHT WITHIN REACH.
[2018-07-03 08:00] VITALS: BP 99/49
--- NOTE | 2018-07-03 08:15 | NUR ---
PT RESTING IN BED EATING BREAKFAST TOLERATING WELL WILL MONITER
--- NOTE | 2018-07-03 20:51 | NUR ---
SIT UP IN BED AND TALK IN TELEPHONE, CALL LIGHT IN REACH.
[2018-07-03 21:20] VITALS: BP 121/61
--- NOTE | 2018-07-04 01:44 | NUR ---
REST IN BED, RESP EVEN, NO DISTRESS. CALL LIGHT IN REACH.
--- NOTE | 2018-07-04 01:54 | NUR ---
RESTING IN BED WITH NO DISTRESS NOTED. RESPIRATIONS UNLABORED. CALL LIGHT IN REACH.
--- NOTE | 2018-07-04 04:36 | NUR ---
REST IN BED, CALL LIGHT IN REACH.
[2018-07-04 08:00] VITALS: BP 129/51
--- NOTE | 2018-07-04 08:00 | NUR ---
PT RESTING IN BED WITH EYES OPEN CALL LIGHT IN REACH NO PROBLEMS WILL MONITER
--- NOTE | 2018-07-04 11:53 | NUR ---
NUTRITION F/U CHART REVIEWED, PT VISIT. PT REPORTS TOLERATING REG DIET WITH GOOD INTAKE RECENT MEALS. NO COMPLAINTS AT THIS TIME. RD FOLLOWING
--- NOTE | 2018-07-04 19:04 | NUR ---
PATIENT IS SITTING UP IN HER BED. DENIES ANY NEEDS. BED IS DOWN LOW WITH CALL LIGHT IN REACH.
[2018-07-04 20:22] VITALS: BP 123/49
--- NOTE | 2018-07-05 00:04 | NUR ---
PATIENT IS SLEEPING. BED IS DOWN LOW WITH SIDE RAILS UP X2 AND CALL LIGHT IS IN REACH.
--- NOTE | 2018-07-05 04:07 | NUR ---
PATIENT IS AWAKE. BED IS DOWN LOW WITH SIDE RAILS UP X2. CALL LIGHT IS IN REACH.
[2018-07-05 08:00] VITALS: BP 114/55
--- NOTE | 2018-07-05 08:00 | NUR ---
UP IN ROOM;ALARM WAIVER SIGNED.STABLE WITH WALKER.DENIES NEEDS.CL IN REACH.BREAKFAST GIVEN.
--- NOTE | 2018-07-05 12:00 | NUR ---
SITTING UP EATING LUNCH.CL IN REACH.
--- NOTE | 2018-07-05 16:00 | NUR ---
RESTING QUIETLY.CL IN REACH.
--- NOTE | 2018-07-05 19:21 | NUR ---
GREETED PATIENT AND INTRODUCED MYSELF HER NURSE FOR THE EVENING. PATIENT IS SITTING ON THE SIDE OF THE BED AND DENIES ANY NEEDS AT THIS TIME. CALL LIGHT IN REACH.
[2018-07-05 20:08] VITALS: BP 137/57
--- NOTE | 2018-07-05 22:05 | NUR ---
ASSISTED PATIENT WITH SHOWER AND WASHING OF HAIR. COMPLETE LINEN CHANGE. PATIENT BACK TO BED AND REPOSITIONED FOR COMFORT. CALL LIGHT IN REACH.
--- NOTE | 2018-07-06 01:02 | NUR ---
PATIENT ASLEEP LAYING ON RIGHT SIDE. RESPIRATIONS EVEN. NO S/S OF DISTRESS. CALL LIGHT IN REACH.
--- NOTE | 2018-07-06 04:54 | NUR ---
PATIENT ASLEEP WITH EYES CLOSED LAYING ON RIGHT SIDE. RESPIRATIONS EVEN. NO S/S OF DISTRESS. CALL LIGHT IN REACH.
--- NOTE | 2018-07-06 08:00 | NUR ---
SHIFT ASSMT COMPLETED.CL IN REACH.
[2018-07-06 08:32] VITALS: BP 144/55
--- NOTE | 2018-07-06 19:23 | NUR ---
PATIENT IS RESTING IN HER BED. SHE DENIES ANY NEEDS. BED IS DOWN LOW AND CL IS IN REACH.
--- NOTE | 2018-07-06 21:15 | NUR ---
PM MEDS GIVEN ORDERED. CALL LIGHT IN REACH.
[2018-07-06 22:09] VITALS: BP 141/56
--- NOTE | 2018-07-07 00:58 | NUR ---
REST QUIELTY IN BED, RESP EVEN, NO DISTRESS, CALL LIGHT IN REACH.
--- NOTE | 2018-07-07 04:05 | NUR ---
REST QUIETLY IN BED, CALL LIGHT IN REACH.
[2018-07-07 07:19] LABS: BASOPHILS 0.2 % (0-2); EOSINOPHILS 0.5 % (0-7); HEMATOCRIT 38.8 % (36.0-48.0); HEMOGLOBIN 11.9 g/dL (12-16); IMMATURE GRANULOCYTES 0.3 % (0-5); LYMPHOCYTES 21.7 % (15-50); MCH 29.5 pg (26.0-34.0); MCHC 30.7 g/dL (31.0-37.0); MCV 96.3 fL (80.0-100.0); MEAN PLATELET VOLUME 9.6 fL (7.4-10.4); MONOCYTES 12.6 % (2-11); NEUTROPHILS 64.7 % (40-80); PLATELET COUNT 318 10x3/uL (130-400); RBC 4.03 10x6/uL (4.00-5.40); RDW 14.3 % (11.5-14.5)
[2018-07-07 07:26] LABS: CALC OSMOLALITY 283 mosm/kg (275-300); CALCIUM 8.1 mg/dL (8.5-10.1); CARBON DIOXIDE 29.2 mmol/L (21.0-32.0); CHLORIDE - SERUM 106 mmol/L (98-107); CREATININE - SERUM 0.6 mg/dL (0.6-1.3); GLUCOSE 84 mg/dL (74-106); SODIUM 143 mmol/L (136-145); UREA NITROGEN 13 mg/dL (7-18); eGFR NON AFRICAN AMERICAN > 90 mL/min (90-120)
[2018-07-07 08:02] VITALS: BP 125/56
--- NOTE | 2018-07-07 08:46 | NUR ---
ALERT AND ORIENTED. NO C/O PAIN. RESP EVEN AND UNLABORED. CL IN REACH.
--- NOTE | 2018-07-07 09:58 | NUR ---
BEING TESTED FOR FLU. TO REMAIN IN ROOM UNTIL TESTED/RESULTS.
--- NOTE | 2018-07-07 11:25 | NUR ---
PATIENT PCP IS DR. ESCOBAR. DME AT HOME IS CANE, WALKER AND WHEELCHAIR THAT SHE GOT FROM [facility]. DISCHARGE PLANS ARE FOR PATIENT TO RETURN HOME. WILL CONTINUE TO FOLLOW WITH PATIENT.
--- NOTE | 2018-07-07 12:12 | NUR ---
PLACED ON DROPLET PRECAUTIONS. TESTED POSITIVE FOR FLU.
--- NOTE | 2018-07-07 13:39 | NUR ---
SHOWER TODAY PER OT. NO DISTRESS NOTED. SITTING IN WC EATING LUNCH.
--- NOTE | 2018-07-07 16:07 | NUR ---
NO CHANGE IN ASSESSMENT. NO C/O PAIN. RESP EVEN AND UNLABORED. CL IN REACH.
[2018-07-07 20:00] VITALS: BP 118/64
--- NOTE | 2018-07-07 20:40 | NUR ---
PT A&O, PLEASANT, PRECAUTIONS DROPLET POSITIVE FOR FLU, REQUESTING PAIN MED GIVING WITH MED PASS, FLUIDS AND CALL LIGHT WITHIN REACH
--- NOTE | 2018-07-08 01:22 | NUR ---
PT UP TO TOILET, INDEPENDENT, FLUIDS AND CALL LIGHT WITHIN REACH
[2018-07-08 08:00] VITALS: BP 124/53
--- NOTE | 2018-07-08 09:39 | NUR ---
Nutrition Follow Up: Chart reviewed. Pt is in isolation for the flu. Interview deferred at this time. Diet: Regular PO Intake: 64% meal avg BM: 07/07/18 Meds and labs reviewed Rec continue current diet. RD following.
--- NOTE | 2018-07-08 10:53 | NUR ---
ALERT AND ORIENTED. NO C/O PAIN. RESP EVEN AND UNLABORED.
--- NOTE | 2018-07-08 14:31 | NUR ---
NO DISTRESS NOTED. NO C/O PAIN AT THIS ITME.
--- NOTE | 2018-07-08 15:06 | NUR ---
PARTICIPATING IN THERAPY AT THIS TIME.
--- NOTE | 2018-07-08 16:27 | NUR ---
SITTING IN CHAIR. NO CHANGE IN ASSESSMENT. NO DISTRESS NOTED.
--- NOTE | 2018-07-08 19:36 | NUR ---
AWAKE AND RESTING IN BED DOZING AT INTERVALS. RESPIRATIONS UNLABORED. ON DROPLET PRECAUTIONS IN PLACE. NO DISTRESS NOTED. CALL LIGHT IN REACH.
[2018-07-08 19:57] VITALS: BP 101/54
--- NOTE | 2018-07-09 00:10 | NUR ---
PATIENT ASLEEP WITH EYES CLOSED. RESPIRATIONS EVEN. NO SIGNS OF DISTRESS. CALL LIGHT IN REACH.
--- NOTE | 2018-07-09 02:54 | NUR ---
CONTINUES RESTING IN BED. CONDITION UNCHANGED. RESPIRATIONS UNLABORED.
[2018-07-09 07:29] LABS: BASOPHILS 0.3 % (0-2); EOSINOPHILS 1.1 % (0-7); HEMATOCRIT 38.4 % (36.0-48.0); HEMOGLOBIN 12.2 g/dL (12-16); IMMATURE GRANULOCYTES 0.3 % (0-5); LYMPHOCYTES 50.7 % (15-50); MCHC 31.8 g/dL (31.0-37.0); MEAN PLATELET VOLUME 9.9 fL (7.4-10.4); MONOCYTES 16.2 % (2-11); NEUTROPHILS 31.4 % (40-80); PLATELET COUNT 269 10x3/uL (130-400); RBC 4.07 10x6/uL (4.00-5.40); RDW 14.1 % (11.5-14.5)
[2018-07-09 07:38] LABS: CALC OSMOLALITY 282 mosm/kg (275-300); CALCIUM 8.5 mg/dL (8.5-10.1); CARBON DIOXIDE 27.5 mmol/L (21.0-32.0); CHLORIDE - SERUM 105 mmol/L (98-107); CREATININE - SERUM 0.5 mg/dL (0.6-1.3); GLUCOSE 98 mg/dL (74-106); SODIUM 141 mmol/L (136-145); UREA NITROGEN 17 mg/dL (7-18); eGFR NON AFRICAN AMERICAN > 90 mL/min (90-120)
--- NOTE | 2018-07-09 07:54 | NUR ---
RESTING WO DISTRESS. RESP EVEN AND UNLABORED. CL IN REACH.
[2018-07-09 08:00] VITALS: BP 108/31
[2018-07-09 08:00] LABS: MCV 94.3 fL (80.0-100.0); WBC 3.6 10x3/uL (4.8-10.8)
--- NOTE | 2018-07-09 10:17 | NUR ---
SHOWER TODAY PER OT.
--- NOTE | 2018-07-09 12:38 | NUR ---
IN DROPLET ISOLATION FOR FLU. EATING LUNCH AT THIS TIME. NO C/O PAIN.
--- NOTE | 2018-07-09 18:18 | NUR ---
NO CHANGE IN ASSESSMENT. RESP EVEN AND UNLABORED. NO C/O PAIN AT THIS TIME.
--- NOTE | 2018-07-09 19:37 | NUR ---
GREETED PATIENT AND INTRODUCED MYSELF. PATIENT IS SITTING ON SIDE OF THE BED AND DENIES ANY NEEDS AT THIS TIME. CALL LIGHT IN REACH.
[2018-07-09 21:19] VITALS: BP 115/56
--- NOTE | 2018-07-10 08:00 | NUR ---
PT EATING BREAKFAST, DENIES NEEDS. WCTM.
[2018-07-10 08:14] VITALS: BP 112/64
[2018-07-10] MEDS ORDERED: TAMIFLU75 MG PO (08:38)
--- NOTE | 2018-07-10 09:32 | NUR ---
PATIENT DISCHARGING HOME TODAY WITH FAMILY. [facility] WILL PROVIDE THERAPY AT HOME. NO NEW DME ORDERED. DR. ESCOBAR 07/16/18 @ 11:40. PATIENT CHOICE FORM FOR HOME HEALTH AND [facility] FORMS SIGNED, COPIES GIVEN TO PATIENT AND FILED IN CHART. DISCHARGE INSTRUCTIONS WITH [facility] FAXED TO PCP AND TO HOME HEALTH.
--- NOTE | 2018-07-10 10:00 | NUR ---
PT AM MEDS ADMINISTERED. PT LUZ HERNÁNDEZ. ALESSIA.
[2018-07-10] MEDS ORDERED: PLAVIX75 MG PO (10:51)
--- NOTE | 2018-07-10 11:45 | NUR ---
PT DISCHARGE INSTRUCTIONS REVIEWED. PT STATES UNDERSTANDING. PT TAKEN OUT BY WHEELCHAIR. PT DISCHARGING HOME WITH FAMILY. MEDS CALLED IN TO [facility].
--- NOTE | 2018-07-11 17:01 | RHP ---
PATIENT: ALEC DAVIS MEDICAL RECORD: [id number] ACCOUNT: [id number] LOCATION:[facility]1113 : 52 ADMISSION DATE: 06/27/18 REHABILITATION HISTORY AND PHYSICAL EXAMINATION POST ADMISSION PHYSICIAN EXAMINATION DATE OF ADMISSION: 06/27/18. ADMITTING DIAGNOSIS: CVA involving the left brain. HISTORY OF PRESENT ILLNESS: The patient is a 67-year-old female patient admitted with an acute pontine lacunar infarction. She has a history of MS, followed by Dr. Blackwood. She has increased weakness and been having some falls. She has been using rolling walker more often than she usually does according to her sister. The patient has been very weak and just could not walk but a few steps. Her sister cleaned up kitchen little bit and left. She came back on June 23 and her wooden door was open to the outside, screen door was shut. The patient was on the floor in the bathroom without any clothes on. The patient's sister thinks she has been all night on the floor. She was brought to the Emergency Room. Her urinalysis showed infection at that time. Her left ankle showed a mildly displaced horizontal fracture of the medial malleolus; however, CT showed nothing acute at that time. She is not able to get up and walk. Sister states that she was very confused when she got there. She thought that she was someone else and was disoriented. She has expressive aphasia and right-sided hemiparesis. Dr. Ny was consulted. Neuro impression of the MRI showed pontine lacunar infarct with a herniated nucleus pulposus. The pontine infarct explained right hemiparesis. Her lacunar infarct should resolve spontaneously. They got a planned elective ACDF for C6-C7 herniated nucleus pulposus and she will likely require carotid endarterectomy during that time period. Please note she was living alone, was independent with ADLs and mobility. She was just started to become weaker and is now using a rolling walker for mobility. Currently, she is mod to max assist for ADLs and mobility. She lives alone and wants to become stronger and hopefully return back to her prior level of functioning. COMORBIDITIES: In this patient, include hemiparesis, expressive aphasia, multiple sclerosis, elevated D-dimer, TIA, fatigue, UTI, bibasilar atelectasis, pulmonary contusion, numbness, edema, vertigo, and osteoporosis. PAST MEDICAL HISTORY: Significant for numbness, vertigo, neuropathy, multiple sclerosis, cataracts, glaucoma, allergies, and edema. PAST SURGICAL HISTORY: Includes hysterectomy and skin cancer removal. ALLERGIES: SULFA AND TRIMETHOPRIM. CURRENT MEDICATIONS: Include furosemide 20 mg daily. She is on Lyrica 75 b.i.d., propranolol 60 mg daily, potassium 10 mEq daily, enoxaparin 30 mg subcutaneously daily, ferrous sulfate 325 daily, Plavix 75 mg daily, aspirin chewable 81 mg daily, Norvasc 2.5 mg daily, estradiol 1 mg daily, Caltrate 500 mg daily, Relpax 40 mg as needed for headache, Pravachol 20 mg at bedtime, Nystatin swish and swallow q.a.c. and at bedtime, Mucinex one tab b.i.d., Aricept 10 mg at bedtime, Tessalon Perles 200 mg t.i.d., Ditropan 5 mg b.i.d., Xalatan eye drops daily, Klonopin 1 mg at bedtime, Sinemet 50/200 one tab t.i.d., Tylenol PM one tab at bedtime, and polyethylene glycol 17 grams in 8 HISTORY AND PHYSICAL [id number] ALEC DAVIS ounces of water daily. HABITS: No alcohol or tobacco use. FAMILY HISTORY: Noncontributory. SOCIAL HISTORY: The patient apparently wants to return home. She does have a strong family caregiver with her sister. REVIEW OF SYSTEMS: Unable to obtain secondary to her aphasia. PHYSICAL EXAMINATION: GENERAL: Well-developed female, who is in no acute distress. HEENT: Normocephalic and atraumatic. Mucosa moist. NECK: Supple with no lymphadenopathy. LUNGS: Clear at this time with no wheeze, rhonchi, or rales. HEART: Regular rate and rhythm. No murmurs, rubs, or gallops. ABDOMEN: Benign. EXTREMITIES: No clubbing, cyanosis, or edema. NEUROLOGIC: Consistent with CVA. LABORATORY DATA: White count is 7.2, H&H of 12 and 40, and platelet count is noted to be 417. Sodium 139, potassium 4.6, BUN and creatinine of 21 and 0.7, and blood sugar is noted to be 97. ASSESSMENT: This is a 67-year-old female patient admitted to rehab with working diagnosis of CVA. The patient has potential to make improvement. We will institute the following multidisciplinary therapies including, but not limited to physical, occupational, respiratory, speech, nutritional services, prosthetics, and orthotics. Given her complex medical condition and risks for more complications, rehabilitation services cannot be provided at a low level of care such as [facility] facility. PLAN: 1. Admit to [facility] for inpatient therapy to include the following disciplines: A. Physical therapy to improve gait, all transfer skills, and bed mobility to modified independent level. B. Occupational therapy to improve activities of daily living to a modified independent level. C. Case management to assist with discharge planning and placement options. D. Nutrition to assist with nutritional needs. E. Rehabilitation nursing to assist in monitoring the patient's underlying medical conditions and to assist with any type of bowel or bladder management. 2. The patient's current medication and medical care will be continued. 3. Place on standard fall precautions. 4. The patient's estimated length of stay is approximately 7-10 days. 5. We will discuss this patient during care team staff meeting this week and I will see again in the a.m. TRANSINT:[id number] Voice Confirmation ID: [id number] DOCUMENT ID: [id number] TANIA notes whether there has been none or any medical/functional change since admission: HISTORY AND PHYSICAL [id number] ALEC DAVIS - No change since pre-admission screen. TANIA attests patient continues to be appropriate for IRF: - Continues to appropriate. VALENCIA SOLIZ MD at 1701 CC: [id number] DICTATION DATE: 06/28/18 1156 MANAGER [employer] SALES: 06/28/18 1253 DIS IN 07/10/18 [facility] [address] [id number]
== END 2018-07-10 11:46 | disposition home health service (06) | DRG 56 ==
LOC: D.REHAB 16:22
PROVIDERS: ADMIT Emergency Medicine; ATTEND Emergency Medicine
DX: I69.351 Hemiplegia and hemiparesis following cerebral infarction affecting right dominant side (principal); I63.81 Other cerebral infarction due to occlusion or stenosis of small artery; R47.01 Aphasia; N39.0 Urinary tract infection, site not specified; J98.11 Atelectasis; G35 Multiple sclerosis; M81.0 Age-related osteoporosis without current pathological fracture; R42 Dizziness and giddiness; R60.9 Edema, unspecified; R20.0 Anesthesia of skin; R53.1 Weakness; Z91.81 History of falling; S22.41XD Multiple fractures of ribs, right side, subsequent encounter for fracture with routine healing; R53.83 Other fatigue